=== PATIENT | female | born 1970 | race Caucasian/White ===

== ENCOUNTER → 2016-10-23 | Outpatient (CLI) | payer BC | END | disposition home or self-care (01) | LOC: EDSTATUS 11:14 → PT 14:59 ==

== ENCOUNTER 2017-01-16 08:00 | Outpatient (RCR) | payer BC | END 2017-02-17 | disposition home or self-care (01) | LOC: PT | DX: Z47.1 Aftercare following joint replacement surgery (principal); Z96.641 Presence of right artificial hip joint ==